=== PATIENT | female | born 1990 | race African-American/Black ===

== ENCOUNTER 2016-09-13 13:05 | Emergency (ER) | payer SELFPAY ==
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
== END 2016-09-13 14:48 | disposition home or self-care (01) ==
LOC: ER 13:05
DX: S10.93XA Contusion of unspecified part of neck, initial encounter (principal); S40.021A Contusion of right upper arm, initial encounter; S80.12XA Contusion of left lower leg, initial encounter; S00.83XA Contusion of other part of head, initial encounter; Y04.8XXA Assault by other bodily force, initial encounter